=== PATIENT | female | born 1970 | race Caucasian/White ===

== ENCOUNTER 2017-05-15 11:04 | Inpatient (IN) | payer OTHER ==
--- NOTE | 2017-05-10 13:11 | MH ---
cc: Lavon HERNANDEZ M.D. DATE OF ADMISSION: 05/15/2017 ADMITTING DIAGNOSIS Osteoarthritic degeneration right hip, now being admitted for right total hip arthroplasty. HISTORY OF PRESENT ILLNESS This pleasant 46-year-old female is being admitted today for right total hip arthroplasty due to severe painful osteoarthritic degeneration, right hip. PAST MEDICAL HISTORY History of arthritis for which she takes anti-inflammatories which are stopped before surgery. She also takes Zyrtec, vitamin-B, fish oil and glucosamine. PAST SURGICAL HISTORY Surgery for breast implants. REVIEW OF SYSTEMS Noncontributory. FAMILY HISTORY Noncontributory. SOCIAL HISTORY She does not smoke, drinks occasionally. ALLERGIES No known allergies. PHYSICAL EXAMINATION GENERAL: We find a 46-year-old female well-developed, well-nourished, oriented x3, complaining of pain in her right hip. VITAL SIGNS: Blood pressure 116/72, pulse 76 and regular, respirations 16, temperature 98.7, pulse oximetry 97% on room air. HEENT: Eyes PERRLA, EOMI. Ears, nose, mouth clear. NECK: Supple. LUNGS: Clear. HEART: Regular rate. ABDOMEN: Soft. Positive bowel sounds. Nontender. EXTREMITIES: The right hip has decreased range of motion. She is neurovascularly intact to her toes. IMPRESSION The impression at this time is severe painful osteoarthritic degeneration, right hip. PLAN The plan is for admission for a right total hip arthroplasty today. The patient understands the procedure well and risks involved. She was given a prescription for postoperative pain and anticoagulation control in the office. She understands to use Hibiclens scrub and Bactroban preoperatively. She plans on going home after surgical stay in the hospital. MD SABRINA Joseph/KWABENA /12:51 PM /12:58 PM
[~2017-05-15] VITALS: Ht 175.3 cm; Wt 72.0 kg
[2017-05-15] MEDS ORDERED: SODIUM CHLORID 0.9% 500 ML IV PRN (12:00)
[2017-05-15] MEDS ORDERED: CHLORHEXIDINE GLUCONATE 2 % 1 PACK (2 CLOTHS) TOPICAL PRN (12:00)
[2017-05-15] MEDS ORDERED: ePHEDrine/NS 25 MG/5 ML SYR IV ONE (12:00)
[2017-05-15] MEDS ORDERED: POVIDONE IODINE 5% (ANTISEPSIS KIT) 4 APPLICATIONS EACH NARE PRN (12:00)
[2017-05-15] MEDS ORDERED: METOPROLOL TARTRATE 25 MG TAB PO PRN (12:00)
[2017-05-15] MEDS ORDERED: NEOSTIGMINE 3 MG/3 ML SYR IV ONE (12:00)
[2017-05-15] MEDS ORDERED: LIDOCAINE HCL 1% PF 5 ML AMPULE OTHER ONE (12:00)
[2017-05-15] MEDS ORDERED: MORPHINE SULFATE 4 MG/ML INJ IV ONE (12:00)
[2017-05-15] MEDS ORDERED: CHLORHEXIDINE GLUCONATE 4% SOLN 120 ML BTL TOPICAL SCH (12:00)
[2017-05-15] MEDS ORDERED: PHENYLEPH/NS 1000 MCG/10 ML SYR IV ONE (12:00)
[2017-05-15] MEDS ORDERED: ceFAZolin 2 GM PREMIX 50 ML IV SCH (12:00)
[2017-05-15] MEDS ORDERED: ROCURONIUM INJ 50 MG/5 ML SYRINGE IV PUSH ONE (12:00)
[2017-05-15] MEDS ORDERED: ONDANSETRON HCL 4 MG/2 ML VIAL IV PUSH ONE (12:00)
[2017-05-15] MEDS ORDERED: DEXAMETHASONE SOD PHOS 4 MG/ML VIAL IV ONE (12:00)
[2017-05-15] MEDS ORDERED: INSULIN HUMAN REGULAR 1,000 UNITS/10 ML VIAL SQ PRN (12:00)
[2017-05-15] MEDS ORDERED: MIDAZOLAM HCL 2 MG/2 ML VIAL IV ONE (12:00)
[2017-05-15] MEDS ORDERED: GLYCOPYRROLATE 1 MG/5 ML SYRINGE IV PUSH ONE (12:00)
[2017-05-15] MEDS ORDERED: VANCOMYCIN 1000 MG/NS 250 ML (for <70 kg) IV SCH ×2 (12:00)
[2017-05-15] MEDS ORDERED: PROPOFOL 200 MG/20 ML AMP IV ONE (12:00)
[2017-05-15] MEDS ORDERED: LACTATED RINGER'S 1000 ML IV PRN (12:00)
[2017-05-15 12:39] LABS: AUTOMATED NEUTROPHIL # 3.3 TH/MM3 (1.8-7.7); BASOPHIL % 0.4 % (0.0-2.0); EOSINOPHIL % 0.4 % (0.0-4.0); HEMATOCRIT 37.8 % (35.0-46.0); HEMO FLAGS DIFF FINAL; LYMPH % 26.6 % (9.0-44.0); LYMPHOCYTE # 1.4 TH/MM3 (1.0-4.8); MEAN CELL VOLUME 98.8 FL (80.0-100.0); MEAN CORPUSCULAR HEMOGLOBIN 33.6 PG (27.0-34.0); NEUT % 63.6 % (16.0-70.0); PLATELET COUNT 179 TH/MM3 (150-450); RED BLOOD COUNT 3.83 MIL/MM3 (4.00-5.30); RED CELL DISTRIBUTION WIDTH 12.4 % (11.6-17.2); WHITE BLOOD COUNT 5.3 TH/MM3 (4.0-11.0)
[2017-05-15 12:46] LABS: APTT (PATIENT) 27.5 SEC (24.3-30.1); PROTHROMBIN TIME - PATIENT 10.7 SEC (9.8-11.6)
[2017-05-15 12:47] LABS: BACTERIA, URINE OCC /hpf; BLOOD, URINE NEG (NEG); COMMENT (UR) CULT NOT INDICATED; CULTURE IF INDICATED CULT NOT INDICATED; GLUCOSE,URINE NEG (NEG); KETONE, URINE NEG (NEG); MUCUS URINE FEW /lpf (OCC); NITRITE,URINE NEG (NEG); PH, URINE 6.5 (5.0-8.5); SQUAMOUS EPITHELIAL CELL URINE 2 /hpf (0-5); URINE COLOR YELLOW (YELLW/STRAW)
[2017-05-15] MEDS ORDERED: ceFAZolin INJ 1,000 MG VIAL ONE ×2 (12:55→15:03)
[2017-05-15 13:06] LABS: ALT (GPT) 8 U/L (10-53); ANION GAP 7 MEQ/L (5-15); AST (GOT) 5 U/L (15-37); BICARBONATE 25.1 MEQ/L (21.0-32.0); BLOOD UREA NITROGEN 13 MG/DL (7-18); CHLORIDE 106 MEQ/L (98-107); GLOMERULAR FILTRATION RATE 98 ML/MIN (>89); POTASSIUM 3.6 MEQ/L (3.5-5.1); SODIUM (NA) 138 MEQ/L (136-145)
[2017-05-15 13:08] LABS: ALKALINE PHOSPHATASE 81 U/L (45-117); TOTAL BILIRUBIN ADULT 0.7 MG/DL (0.2-1.0)
[2017-05-15] MEDS ORDERED: TRANEXAMIC ACID INJ 720 MG in SODIUM CHLORIDE 0.9% INJ 100 ML IV SCH ×2 (13:30→17:00)
[2017-05-15] MEDS ORDERED: FAMOTIDINE 20 MG/2 ML VIAL ONE (13:41)
[2017-05-15] MEDS ORDERED: ACETAMINOPHEN 1000 MG/100 ML 100 ML IV ONE (13:41)
[2017-05-15] MEDS ORDERED: EXPAREL PERI-ARTICULAR INJECTION (TOTAL VOL. 60 ML) P-ARTICULR SCH ×2 (14:00)
[2017-05-15] MEDS ORDERED: Post-op Orders (for Pharmacy) MISC XX ONE (14:15)
[2017-05-15] MEDS ORDERED: SODIUM CHLORIDE 0.9% FLUSH 5 ML FLUSH IVF PRN (14:15)
[2017-05-15] MEDS ORDERED: MISCELLANEOUS NURSING INFORMATION XX PRN (14:15)
[2017-05-15] MEDS ORDERED: BISACODYL 10 MG SUPP RECTAL PRN (14:15)
[2017-05-15] MEDS ORDERED: NALOXONE HCL 0.4 MG/ML AMP IV PRN (14:15)
[2017-05-15] MEDS ORDERED: MORPHINE SULFATE 8 MG/ML INJ IV PUSH PRN (14:15)
[2017-05-15] MEDS ORDERED: TRANEXAMIC ACID INJ 0 MG in SODIUM CHLORIDE 0.9% INJ 100 ML IV SCH (14:15)
[2017-05-15] MEDS ORDERED: ONDANSETRON HCL 4 MG/2 ML VIAL IVP PRN (14:15)
--- NOTE | 2017-05-15 14:16 | HHI.FF ---
Face to Face Verification Diagnosis: (1) Status post total replacement of right hip Physical Therapy Gait training Hip: Total hip, Protocol: Right, Posterior hip precautions, Abduction pillow while in bed, Progress to weight bearing Canvas Knee Splint: When in bed & 2 pillows btw thighs Nursing Nursing: Other Dressing Changes: Do not change dressing I have seen patient Zoe Bolanos on 05/15/17. My clinical findings support the need for the requested home health care services because: Limited ability to care for self High risk of falls I certify that my clinical findings support that this patient is homebound because: Unsteady gait/balance Lavon Rojas MD May 15, 2017 14:16
[2017-05-15] MEDS ORDERED: ADJUSTABLE COMM1 MIS (14:18)
[2017-05-15] MEDS ORDERED: WALKER WHEELS/F1 MIS (14:18)
--- NOTE | 2017-05-15 15:38 | EKG ---
Date Performed: 05/15/2017 Time Performed: 11:48:03 PTAGE: 46 years EKG: Sinus rhythm NONSPECIFIC T-WAVE ABNORMALITY BORDERLINE ECG No prior tracing for comparison. Cannot rule out ische sara. Clinical correlation recommended. NO PREVIOUS TRACING DOCTOR: Jose Alberto Vargas Interpretating Date/Time 05/15/2017 15:37:29
[2017-05-15] MEDS ORDERED: DO NOT ADM ANY ANTICOAGULANT DRUGS PRN (16:50)
--- NOTE | 2017-05-15 17:00 | HHI.PR ---
Immediate Post Op Note Procedure Date: May 15, 2017 Pre Op Diagnosis: severe degenerative osteoarthritis of right hip Post Op Diagnosis: severe degenerative osteoarthritis of right hip Surgeon: Lavon Rojas MD Wad Impregnator(s): Angelica CAMPOVERDE Procedure: Right total hip arthroplasty Complications: none Specimen(s) removed: none Estimated blood loss: 400cc Anesthesia: General Drains: None IVF Tourniquet time (min at mmHg) none Patient to: PACU Patient Condition: Good Implant/Devices: SEE IMPLANT LOG (if applicable) Date/Time of Procedure: SEE SURGICAL CARE RECORD Angelica Cuenca May 15, 2017 17:00
[2017-05-15] MEDS ORDERED: *morphine SULFATE 8 MG/ML PERIprocedure ONLY ONE ×2 (17:01→17:16)
[2017-05-15] MEDS: LACTATED RINGER'S 1000 ML INJ 1,000 ML IV SCH (17:30)
--- NOTE | 2017-05-15 17:59 | RADRPT ---
EXAM DATE/TIME: 05/15/2017 17:26 [facility] COMPARISON: No previous studies available for comparison. INDICATIONS : Post op right total hip prosthesis. MEDICAL HISTORY : None. SURGICAL HISTORY : None. ENCOUNTER: Initial ACUITY: 1 day PAIN SCORE: 9/10 LOCATION: Right hip FINDINGS: Right total hip arthroplasty is noted. Femoral and acetabular components are well seated. Severe oste oarthritis of the left hip. No fracture or dislocation. CONCLUSION: Satisfactory appearance of right hip arthroplasty. Eligio Lombardi MD on May 15, 2017 at 17:57 Board Certified Radiologist. This report was verified electronically.
[2017-05-15] MEDS ORDERED: ACETAMINOPHEN 325 MG TAB PO PRN (18:00)
[2017-05-15 20:00] VITALS: BP 106/59; PULSE 85; RESP 15; TEMP 95.8; O2SAT 96
[2017-05-15] MEDS: ACETAMINOPHEN/HYDROcodone 325 MG/7.5 MG TAB PO PRN (20:04)
[2017-05-15] MEDS: SODIUM CHLORIDE 0.9% FLUSH 5 ML FLUSH IVF SCH (20:09)
[2017-05-15] MEDS ORDERED: TEMAZEPAM 15 MG CAP PO PRN (21:00)
[2017-05-15 21:25] VITALS: O2SAT 96
[2017-05-16] VITALS: BP 111/62; PULSE 83; RESP 16; TEMP 96.4; O2SAT 96
[2017-05-16] MEDS: ACETAMINOPHEN/HYDROcodone 325 MG/7.5 MG TAB PO PRN ×5 (01:23→20:55)
[2017-05-16] MEDS: LACTATED RINGER'S 1000 ML INJ 1,000 ML IV SCH ×2 (02:42→09:47)
[2017-05-16 04:00] VITALS: BP 105/61; PULSE 83; RESP 17; TEMP 98; O2SAT 99
[2017-05-16 05:36] LABS: HEMATOCRIT 30.5 % (35.0-46.0); REVIEW FLAG FINAL
--- NOTE | 2017-05-16 07:52 | MP ---
cc: Lavon ROJAS M.D. DATE OF SURGERY 05/15/2017 PREOPERATIVE DIAGNOSIS Osteoarthritic degeneration right hip. POSTOPERATIVE DIAGNOSIS Osteoarthritic degeneration right hip. SURGERY PERFORMED Right total hip arthroplasty using Aesculap components, size 12 standard stem with a 36 short head/ceramic head, a 52 x 36 poly liner, 52 cup and 6.5 x 28 mm screw to the acetabulum. No cement utilized. SURGEON Dr. Rojas WEB SERVICES DEVELOPER NIRALI Burgos ANESTHESIA General intubation. PROCEDURE FOLLOWS The patient was brought to the Operating Room, where after successful induction of spinal anesthesia was placed on the operating room table in the right lateral decubitus position. The left hip, thigh and leg were prepped and draped in the usual manner. A posterolateral approach was then utilized by making an incision over the proximal portion of the femur lateral aspect, carried across the greater trochanter, carried posterior in a curved incision toward the buttock. The incision was carried down through the subcutaneous tissue, through the fibers of the tensor fascia sridevi and gluteus carolina to expose the greater trochanteric bursa. This was then removed by sharp and blunt dissection. The hip was then internally rotated to expose the insertions of the short external rotators of the hip and were incised at their insertion into the greater trochanter and reflected posterior to protect the sciatic nerve. These were held with a Charnley retractor to better visualize the hip joint. The capsule was identified and removed by sharp dissection. The hip was then dislocated by internal rotation and flexion of the hip. The femoral calcar was then measured using the trial components for the appropriate length cut of the neck using an oscillating saw. After the cut was made the head was removed. The acetabulum was then approached and measured, the acetabulum reamed with the acetabular reamers. Next, the femoral calcar was approached by first inserting a canal finder followed by rigid reamers, followed by a cookie-cutter to the appropriate size, in this case being a #15. The broach was left in place and a planer used to plane the calcar to a smooth finish. The broach was then removed. The trial components were then inserted into place, the hip reduced, found to track smoothly with no evidence of subluxation or dislocation. All trial components were removed. The wound was irrigated copiously with antibiotic solution and Water Pik. The actual components were then inserted and impacted into place using Aesculap components, size 12 standard stem with a 36 short head/ceramic head, a 52 x 36 poly liner, 52 cup and 6.5 x 28 mm screw to the acetabulum. No cement utilized. The hip was reduced, found to track smoothly with no evidence of subluxation or dislocation. 60 cc of Exparel was used for extra block around the deep incisions, staying away from the sciatic nerve which was identified and protected throughout the procedure. The remains of the labrum of the acetabulum were repaired using #1 Vicryl suture. The deep fascia was approximated with running #2 Quill, the subcutaneous tissue approximated using interrupted and running 2-0 and 3-0 Monocryl suture and Primapore dressing, abduction pillow base and knee immobilizer. DRAINS No drain utilized. ESTIMATED BLOOD LOSS 400 cc. COUNTS Sponge and suture counts were correct. The patient tolerated the procedure well and left the Operating Room in satisfactory condition. NIRALI Burgos, was present during the entire procedure to include patient positioning and the procedure. The medical necessity of the nurse practitioner power plant assistant was indicated in this case due to the surgical complexity of the case itself. During the surgical case the medical surgical tech was working the back table while my operating room surgical technician NIRALI was directly assisting me. J. MD SABRINA Mccarthy/SSB /4:21 PM /7:40 AM
[2017-05-16 08:00] VITALS: BP 108/54; PULSE 86; RESP 18; TEMP 98.3; O2SAT 97
[2017-05-16] MEDS: MAGNESIUM HYDROXIDE SUSP 30 ML CUP PO PRN (08:20)
[2017-05-16] MEDS: APIXABAN 2.5 MG TABLET PO SCH ×2 (08:21→20:55)
[2017-05-16] MEDS: SODIUM CHLORIDE 0.9% FLUSH 5 ML FLUSH IVF SCH ×2 (08:25→21:10)
--- NOTE | 2017-05-16 11:30 | PD.ORT.PN ---
Subjective Subjective Remarks Patient basically comfortable today. No complaints. Objective Vitals Vital Signs Date Time Temp Pulse Resp B/P (MAP) Pulse Ox O2 Delivery O2 Flow Rate FiO2 05/16/17 08:00 98.3 86 18 108/54 (72) 97 05/16/17 04:00 98.0 83 17 105/61 (76) 99 05/16/17 00:00 96.4 83 16 111/62 (78) 96 05/15/17 21:25 96 21 05/15/17 20:00 95.8 85 15 106/59 (75) 96 05/15/17 18:30 88 16 104/66 (79) 97 Room Air 05/15/17 18:15 98.2 85 16 108/65 (79) 96 Room Air 05/15/17 18:00 87 16 102/64 (77) 95 Room Air 05/15/17 17:45 88 15 105/66 (79) 100 Nasal Cannula 2 05/15/17 17:30 86 15 107/62 (77) 98 Nasal Cannula 2 05/15/17 17:15 84 15 110/67 (81) 97 Nasal Cannula 2 05/15/17 17:00 86 14 114/60 (78) 100 Nasal Cannula 3 05/15/17 16:55 98.3 85 13 114/60 (78) 100 Nasal Cannula 4 05/15/17 12:00 98.6 68 16 119/72 (88) 96 I/O 05/15/17 05/15/17 05/15/17 05/16/17 05/16/17 05/16/17 07:00 15:00 23:00 07:00 15:00 23:00 Intake Total 1819.2 ml 1418 ml 99 ml Output Total 400 ml Balance 1419.2 ml 1418 ml 99 ml Intake Oral 240 ml 480 ml IV Total 379.2 ml 938 ml 99 ml Other 1200 ml Output Estimated Blood Loss 400 ml # Voids 1 3 # Bowel Movements 0 0 Result Diagram: 05/16/17 0520 05/15/17 1205 Other Results Laboratory Tests Test 05/15/17 12:05 Prothromb Time International Ratio 1.0 RATIO Prothrombin Time 10.7 SEC (9.8-11.6) Imaging Last 24 hours Impressions Hip X-Ray 05/15/17 1412 Signed Impressions: Service Date/Time: Monday, May 15, 2017 17:26 - CONCLUSION: Satisfactory appearance of right hip arthroplasty. Eligio Lombardi MD Objective Remarks Patient sitting up in chair. Dressing is dry and intact. Negative Homans sign. She is neurovascularly intact to her toes. Assessment & Plan Ortho Post Op Day #: 1 Problem List: Assessment and Plan Continue PT and out of bed today. Plan on discharge to home with home health care tomorrow. Lavon Roajs MD May 16, 2017 11:30
[2017-05-16 12:00] VITALS: BP 108/59; PULSE 74; RESP 18; TEMP 98.7; O2SAT 98
[2017-05-16 16:00] VITALS: BP 112/60; PULSE 75; RESP 18; TEMP 97.3; O2SAT 100
[2017-05-16] MEDS: DOCUSATE SODIUM 100 MG CAP PO SCH (20:55)
[2017-05-16] MEDS: MULTIVITAMINS/MINERALS THERAPEUTIC TAB PO SCH (20:55)
[2017-05-16 21:54] VITALS: O2SAT 100
[2017-05-17] VITALS: BP 102/50; PULSE 89; RESP 19; TEMP 99.2; O2SAT 94
[2017-05-17] MEDS: LACTATED RINGER'S 1000 ML INJ 1,000 ML IV SCH (01:08)
[2017-05-17 05:47] LABS: HEMATOCRIT 28.9 % (35.0-46.0); REVIEW FLAG FINAL
[2017-05-17] MEDS: ACETAMINOPHEN/HYDROcodone 325 MG/7.5 MG TAB PO PRN ×3 (06:13→14:14)
--- NOTE | 2017-05-17 07:40 | PD.ORT.PN ---
Subjective Subjective Remarks Patient basically comfortable today. No complaints. Objective Vitals Vital Signs Date Time Temp Pulse Resp B/P (MAP) Pulse Ox O2 Delivery O2 Flow Rate FiO2 05/17/17 00:00 99.2 89 19 102/50 (67) 94 05/16/17 21:54 100 05/16/17 16:00 97.3 75 18 112/60 (77) 100 05/16/17 12:00 98.7 74 18 108/59 (75) 98 05/16/17 08:00 98.3 86 18 108/54 (72) 97 I/O 05/16/17 05/16/17 05/16/17 05/17/17 05/17/17 05/17/17 07:00 15:00 23:00 07:00 15:00 23:00 Intake Total 1418 ml 849 ml 280 ml 240 ml Output Total 300 ml 400 ml Balance 1418 ml 849 ml -20 ml -160 ml Intake Oral 480 ml 750 ml 280 ml 240 ml IV Total 938 ml 99 ml Output Urine Total 300 ml 400 ml # Voids 3 3 # Bowel Movements 0 0 0 0 Result Diagram: 05/17/17 0413 05/15/17 1205 Imaging Last 24 hours Impressions Hip X-Ray 05/15/17 1412 Signed Impressions: Service Date/Time: Monday, May 15, 2017 17:26 - CONCLUSION: Satisfactory appearance of right hip arthroplasty. Eligio Lombardi MD Objective Remarks Patient in bed today. Dressing is dry and intact. Negative Homans sign. She is neurovascularly intact to her toes. Assessment & Plan Ortho Post Op Day #: 2 Problem List: Assessment and Plan Continue PT and out of bed today. Plan on discharge to home with home health care today if she remains afebrile. Lavon Rojas MD May 17, 2017 07:40
--- NOTE | 2017-05-17 07:44 | HHI.DS ---
Discharge Summary Admission Date May 15, 2017 at 11:04 Discharge Date: May 17, 2017 Admitting Diagnosis Osteoarthritic degeneration right hip Diagnosis: (1) Status post total replacement of right hip Diagnosis: Principal ICD Codes: Z96.641 - Presence of right artificial hip joint Brief History This is a 46 year old female patient CBC/BMP: 05/17/17 0413 05/15/17 1205 Significant Findings Laboratory Tests Test 05/15/17 12:05 05/16/17 05:20 05/17/17 04:13 Red Blood Count 3.83 MIL/MM3 (4.00-5.30) Monocytes (%) (Auto) 9.0 % (0.0-8.0) Urine Leukocyte Esterase MOD (NEG) Urine Bacteria OCC /hpf (NONE) Urine Mucus FEW /lpf (OCC) Aspartate Amino Transf (AST/SGOT) 5 U/L (15-37) Alanine Aminotransferase (ALT/SGPT) 8 U/L (10-53) Hemoglobin 10.4 GM/DL (11.6-15.3) 10.0 GM/DL (11.6-15.3) Hematocrit 30.5 % (35.0-46.0) 28.9 % (35.0-46.0) PE at Discharge Patient in bed today. Dressing is dry and intact. Negative Homans sign. She is neurovascularly intact to her toes. Hospital Course Patient underwent a right total hip arthroplasty on day of admission. She received a course of prophylactic IV antibiotics and within 23 hours started on anticoagulation therapy. Early on postoperative day 2 she developed a temp of 101.2 but using the incentive spirometry of the temperature drop back to within normal limits. She then remained afebrile vital signs stable and neurovascularly intact tolerating food and fluid well and physical therapy. She was discharged on postoperative day 2 in good condition to home with home healthcare and instructions for follow-up appointment. Pt Condition on Discharge: Good Discharge Disposition: Disch w/ Home Health Serv Discharge Instructions Diet Instructions: As Tolerated, No Restrictions Activities You Can Perform: Full Weight Bearing, Shower Only-No Bath Activities to Avoid: Bathing, Driving Lavon Rojas MD May 17, 2017 07:44
[2017-05-17 08:00] VITALS: BP 92/59; PULSE 82; RESP 18; TEMP 99; O2SAT 97
[2017-05-17 09:14] VITALS: O2SAT 97
[2017-05-17] MEDS: MAGNESIUM HYDROXIDE SUSP 30 ML CUP PO PRN (10:09)
[2017-05-17] MEDS: DOCUSATE SODIUM 100 MG CAP PO SCH (10:09)
[2017-05-17] MEDS: MULTIVITAMINS/MINERALS THERAPEUTIC TAB PO SCH (10:09)
[2017-05-17] MEDS: APIXABAN 2.5 MG TABLET PO SCH (10:10)
[2017-05-17] MEDS: SODIUM CHLORIDE 0.9% FLUSH 5 ML FLUSH IVF SCH (10:15)
[2017-05-17 12:00] VITALS: BP 106/62; PULSE 79; RESP 18; TEMP 98; O2SAT 100
== END 2017-05-17 15:53 | disposition home health service (06) | DRG 470 ==
LOC: HSDI 11:04 → N06A 18:56
PROVIDERS: ADMIT Surgery; ATTEND Surgery
PROC: 0SR904A Replacement of Right Hip Joint with Ceramic on Polyethylene Synthetic Substitute, Uncemented, Open Approach (ICD-10-PCS; principal; 2017-05-15 13:58)
DX: M16.11 Unilateral primary osteoarthritis, right hip (principal); K21.9 Gastro-esophageal reflux disease without esophagitis; Z87.891 Personal history of nicotine dependence; Z98.82 Breast implant status
CPT/HCPCS: 73501; 80053; 81001; 85014; 85018; 85025; 85610; 85730; 86850; 86900; 86901; 93005; 94150; C1776; C9290; J0131; J0690; J1100; J2250; J2270; J2370; J2405; J2710; J3010; J3370; J7050; J7120; L1830